=== PATIENT | male | born 1950 | race Caucasian/White ===

== ENCOUNTER → 2024-07-24 | Outpatient (CLI) | payer MEDICARE | END | disposition home or self-care (01) | LOC: RAD 10:52 | PROVIDERS: ATTEND Orthopaedic Surgery | DX: M19.072 Primary osteoarthritis, left ankle and foot (principal); M19.071 Primary osteoarthritis, right ankle and foot; M25.775 Osteophyte, left foot; M25.771 Osteophyte, right ankle | CPT/HCPCS: 73610-RT; 73630-LT ==